=== PATIENT | female | born 1995 | race Caucasian/White ===

== ENCOUNTER 2019-02-27 11:39 | Emergency (ER) | payer MEDICAID, OTHER ==
[2019-02-27 11:52] VITALS: PULSE 87; O2SAT 100
[2019-02-27 12:39] VITALS: BP 111/72
[2019-02-27] MEDS ORDERED: AMOXIL 250 MG/5 ML PO ONE (13:17)
--- NOTE | 2019-02-27 13:23 | ERPHSYRPT ---
- History of Present Illness Time Seen by Provider: 02/27/19 13:11 Source: patient Exam Limitations: no limitations Patient Subjective Stated Complaint: left jaw swelling Triage Nursing Assessment: Pt c/o of left jaw pain, swollen, cavity on bottom back left, rates pain 10/10, vitals wnl Physician History: Pt started c/o pain and swelling in her left jaw area 4 days ago, swelling increased, c/o severe toothache, nausea, denies vomiting, fever, chills, difficulty breathing or swallowing liquids. She took 2 antibiotics her uncle gave her today. Timing/Duration: gradual onset Severity: severe ENT Location: facial, dental Prearrival Treatment: prescription meds Modifying Factors: Improves With: nothing Associated Symptoms: facial pain/swelling, jaw pain, tooth pain, No difficulty swallowing, No voice change Allergies/Adverse Reactions: No Known Drug Allergies Allergy (Verified 02/27/19 11:52) - Review of Systems Constitutional: No Symptoms Eyes: No Symptoms Ears, Nose, & Throat: Other (toothache, left jaw pain and swelling), No Stridor Respiratory: No Symptoms Cardiac: No Symptoms Abdominal/Gastrointestinal: Nausea Genitourinary Symptoms: No Symptoms Musculoskeletal: No Symptoms Skin: No Symptoms Neurological: No Symptoms All Other Systems: Reviewed and Negative - Past Medical History Pertinent Past Medical History: No - Past Surgical History Past Surgical History: No - Social History Smoking Status: Current every day smoker How long have you smoked: 10 years Exposure to second hand smoke: Yes Drug Use: none Patient Lives Alone: No - Female History Hx Now: No (unsure) - Nursing Vital Signs Nursing Vital Signs: Initial Vital Signs Temperature 98.1 F 02/27/19 11:45 Pulse Rate 87 02/27/19 11:45 Blood Pressure 120/69 02/27/19 11:45 O2 Sat by Pulse Oximetry 100 02/27/19 11:45 Pain Scale Pain Intensity 10 - Physical Exam General Appearance: no apparent distress Eye Exam: bilateral eye: normal inspection Nasal Exam: normal inspection Throat Exam: normal, pharynx normal, dental tenderness (left lower molars (#18- 19) with severe caries, no gum or mouth floor edema, swelling or lesions, left mandibular swelling), mandibular swelling, moist mucus membranes, No excessive drooling, No pharynx swelling, No tongue swollen, No tonsillar exudate, No voice changes Neck Exam: normal inspection, supple, trachea midline, lymphadenopathy (L), No JVD, No lymphadenopathy (R) Cardiovascular/Respiratory Exam: chest non-tender, normal breath sounds, regular rate/rhythm, heart sounds normal, no ecchymosis, no JVD, no respiratory distress Abdominal Exam: non-tender Neurologic Exam: alert, oriented x 3, cooperative, normal mood/affect Skin Exam: normal color, warm, dry, No rash, No petechiae SpO2 Interpretation: normal SpO2: 100 O2 Delivery: Room Air - Course Nursing assessment & vital signs reviewed: Yes - Progress Progress: unchanged Progress Note: 02/27/19 13:23 Pt was started on 500 mg liquid Amoxicillin and discharged home to rinse her mouth frequently with warm saline, and follow up with dentist in 2-3 days! Counseled pt/family regarding: diagnosis, need for follow-up (with dentist!) - Departure Departure Disposition: Home Clinical Impression: Dental abscess Condition: Stable Critical Care Time: No Referrals: DOCTOR,NO FAMILY [Primary Care Provider] - Instructions: Tooth Abscess (DC) Additional Instructions: Rest x 2-3 days, rinse your mouth frequently with warm saline solution and follow up with dentist in 2-3 days, return if severe pain, difficulty swallowing liquids, or difficulty breathing, vomiting, high fever> 102 F! Prescriptions: Amoxicillin 250 mg/5 ml [Amoxil 250 mg/5 ml] 500 mg PO TID 10 Days #300 ml Tramadol HCl 50 mg [Ultram 50 mg] 50 mg PO Q6H PRN #10 tablet PRN Reason: Pain
[2019-02-27] MEDS ORDERED: AMOXIL 250 MG/5 ML ONE (13:39)
== END 2019-02-27 14:05 | disposition home or self-care (01) ==
LOC: ED 11:39
DX: K04.7 Periapical abscess without sinus (principal); R68.84 Jaw pain
CPT/HCPCS: 99283; A9270-GY

== ENCOUNTER 2019-02-28 12:59 | Emergency (ER) | payer OTHER | END 2019-02-28 13:30 | disposition left against medical advice (07) | LOC: ED 12:59 | DX: Z53.9 Procedure and treatment not carried out, unspecified reason (principal) ==